=== PATIENT | female | born 1950 | race Caucasian/White ===

== ENCOUNTER 2019-09-15 05:43 | Inpatient (IN) ==
[2019-09-15] MEDS ORDERED: ceFAZolin 1,000 MG VIAL ONE (05:59)
[2019-09-15] MEDS ORDERED: VANCOMYCIN 1,000 MG VIAL ONE (05:59)
[2019-09-15] MEDS ORDERED: ceFAZolin 1,000 MG in SYRINGE 1 EACH IV ONE (06:00)
[2019-09-15] MEDS ORDERED: DIAZEPAM 5 MG TABLET ONE (06:00)
[2019-09-15] MEDS ORDERED: GABAPENTIN 400 MG CAPSULE PO ONE (06:00)
[2019-09-15] MEDS ORDERED: FAMOTIDINE 20 MG TABLET ONE (06:00)
[2019-09-15] MEDS ORDERED: ACETAMINOPHEN 500 MG TABLET PO ONE (06:00)
[2019-09-15] MEDS ORDERED: GABAPENTIN 400 MG CAPSULE ONE (06:00)
[2019-09-15] MEDS ORDERED: DIAZEPAM 5 MG TABLET PO ONE (06:00)
[2019-09-15] MEDS ORDERED: VANCOMYCIN INJ 1,000 MG in SODIUM CHLORIDE 0.9% 250 ML IV ONE (06:00)
[2019-09-15] MEDS ORDERED: ACETAMINOPHEN 500 MG TABLET ONE (06:00)
[2019-09-15] MEDS ORDERED: FAMOTIDINE 20 MG TABLET PO ONE (06:00)
[2019-09-15] MEDS: SODIUM CHLORIDE 0.9% 1,000 ML IV SCH ×2 (06:35→08:21)
[2019-09-15] MEDS ORDERED: TRANEXAMIC ACID 1,000 MG/10 ML VIAL ONE (06:46)
[2019-09-15] MEDS ORDERED: PHENYLEPHRINE DRIP 20 MG/250 ML PREMIX IV ONE (06:47)
[2019-09-15] MEDS ORDERED: diphenhydrAMINE CAP 25 MG CAPSULE PO PRN (07:14)
[2019-09-15] MEDS ORDERED: MAGNESIUM HYDROXIDE SUSP 30 ML UDCUP PO PRN (07:14)
[2019-09-15] MEDS ORDERED: MORPHINE 4 MG/1 ML VIAL IV PRN ×2 (07:14→10:42)
[2019-09-15] MEDS ORDERED: LACTULOSE 20 GM/30 ML UDCUP PO PRN (07:14)
[2019-09-15] MEDS ORDERED: PROMETHAZINE 25 MG/1 ML VIAL IM PRN (07:14)
[2019-09-15] MEDS ORDERED: ONDANSETRON 4 MG/2 ML VIAL IV PRN ×2 (07:14→09:37)
[2019-09-15] MEDS ORDERED: TEMAZEPAM 7.5 MG CAPSULE PO PRN (07:14)
[2019-09-15] MEDS ORDERED: BISACODYL 10 MG SUPP RECTAL PRN (07:14)
[2019-09-15] MEDS ORDERED: BUPIVACAINE 0.5% 50 ML VIAL ONE (07:54)
[2019-09-15] MEDS ORDERED: EPINEPHrine 1 MG/ML VIAL ONE (07:54)
[2019-09-15] MEDS ORDERED: DEXAMETHASONE 4 MG/1 ML VIAL ONE (07:54)
[2019-09-15] MEDS ORDERED: FENOFIBRIC ACID 135 MG PO SCH (09:00)
[2019-09-15] MEDS ORDERED: fentaNYL 100 MCG/2 ML VIAL ONE (09:09)
[2019-09-15] MEDS ORDERED: SODIUM CHLORIDE 0.9% 100 ML IV ONE (09:09)
[2019-09-15] MEDS ORDERED: SODIUM CHLORIDE 0.9% 1,000 ML IV ONE (09:09)
[2019-09-15] MEDS ORDERED: MIDAZOLAM 10 MG/2 ML VIAL ONE (09:09)
[2019-09-15] MEDS ORDERED: ONDANSETRON 4 MG/2 ML VIAL ONE (09:34)
[2019-09-15] MEDS ORDERED: HYDROmorphone 2 MG/1 ML VIAL ONE (09:34)
[2019-09-15] MEDS: HYDROmorphone 2 MG/1 ML VIAL IV PRN ×2 (09:35→09:45)
[2019-09-15 09:38] LABS: Apearance,Urine CLEAR (Clear); Bacteria,Urine Occasional /HPF (Few); Bilirubin,Urine Negative (Negative); Blood, Urine Negative (Negative); Glucose,Urine (UA) Negative (Negative); Ketones,Urine Negative (Negative); Nitrite,Urine Negative (Negative); Protein,Urine Negative; RBC,Urine 1 /HPF (0-4); Urine Color Yellow (Yellow); Urine Specific Gravity 1.015 (1.001-1.035); Urine Urobilinogen < 2.0 EU/DL (0.2-1.0); WBC,Urine <1 /HPF (0-6)
[2019-09-15] MEDS: ASPIRIN EC 81 MG TABLET PO SCH (10:36)
[2019-09-15] MEDS: amLODIPine 10 MG TABLET PO SCH (10:37)
[2019-09-15] MEDS: DOCUSATE SODIUM 100 MG CAPSULE PO SCH ×2 (10:40→20:24)
[2019-09-15] MEDS: ceFAZolin 1,000 MG in SYRINGE 1 EACH IV SCH (17:20)
[2019-09-15] MEDS: FONDAPARINUX 2.5 MG/0.5 ML SYRINGE SUBCUT SCH (17:20)
[2019-09-15] MEDS ORDERED: SIMVASTATIN 40 MG TABLET PO SCH (21:00)
[2019-09-15] MEDS ORDERED: DOXAZOSIN 1 MG TABLET PO SCH (21:00)
[2019-09-16] MEDS: ceFAZolin 1,000 MG in SYRINGE 1 EACH IV SCH (01:17)
[2019-09-16 03:10] LABS: Apearance,Urine CLEAR (Clear); Bilirubin,Urine Negative (Negative); Blood, Urine Small mg/dL (Negative); Glucose,Urine (UA) 50 mg/dL (Negative); Ketones,Urine Negative (Negative); Nitrite,Urine Negative (Negative); Protein,Urine Negative; RBC,Urine 1 /HPF (0-4); Squamous Epithelial Cell,Urine Occasional /HPF (0-10); Urine Color Straw (Yellow); Urine Specific Gravity 1.009 (1.001-1.035); Urine Urobilinogen < 2.0 EU/DL (0.2-1.0); WBC,Urine 8 /HPF (0-6)
[2019-09-16 06:10] LABS: Basophils % 0.3 % (0.0-0.8); Eosinophils % 0.1 % (0.00-10.9); Hematocrit 26.3 VOL% (35.7-47.0); Hemoglobin 8.4 GM/DL (12.0-16.0); Immature Granulocytes % 0.5 %; Immature Granulocytes Absolute 0.04 #; Lymphocytes # 0.7 10*3/uL (1.4-4.0); Lymphocytes % 8.3 % (21.3-54.2); Mean Corpuscular HGB Conc 31.9 GM/DL (32-36); Mean Corpuscular Volume 94.3 FL (87-102); Mean Platelet Volume 10.7 FL (9.6-12.0); Monocytes % 9.6 % (1.7-12.7); Neutrophils % 81.2 % (38.7-73.9); Platelet Count 189 T/CUMM (130-400); Red Blood Count 2.79 MC/CUMM (3.8-5.5); White Blood Count 7.9 T/CUMM (4-12)
[2019-09-16 06:34] LABS: Calcium 7.9 MG/DL (8.5-10.1)
[2019-09-16] MEDS: DOCUSATE SODIUM 100 MG CAPSULE PO SCH ×2 (08:10→20:23)
[2019-09-16] MEDS: ASPIRIN EC 81 MG TABLET PO SCH (08:10)
[2019-09-16] MEDS: SIMVASTATIN 40 MG TABLET PO SCH ×2 (08:10→20:23)
[2019-09-16] MEDS: amLODIPine 10 MG TABLET PO SCH (08:10)
[2019-09-16] MEDS: FONDAPARINUX 2.5 MG/0.5 ML SYRINGE SUBCUT SCH (17:19)
[2019-09-16] MEDS: DOXAZOSIN 1 MG TABLET PO SCH ×2 (17:19→20:23)
[2019-09-17] MEDS: SODIUM CHLORIDE 0.9% 1,000 ML IV SCH (01:18)
[2019-09-17] MEDS ORDERED: SIMVASTATIN 40 MG TABLET PO SCH (08:00)
[2019-09-17] MEDS: ASPIRIN EC 81 MG TABLET PO SCH (08:01)
[2019-09-17] MEDS: DOCUSATE SODIUM 100 MG CAPSULE PO SCH (08:01)
[2019-09-17] MEDS: amLODIPine 10 MG TABLET PO SCH (08:01)
[2019-09-17 08:47] VITALS: BP 125/48
[2019-09-17] MEDS: FONDAPARINUX 2.5 MG/0.5 ML SYRINGE SUBCUT SCH (10:22)
== END 2019-09-17 10:36 | disposition home or self-care (01) ==
LOC: N.SDSINP 05:43 → N.3E 10:21
PROVIDERS: ADMIT Orthopaedic Surgery; ATTEND Orthopaedic Surgery